=== PATIENT | male | born 1960 ===

== ENCOUNTER 2020-01-28 13:03 | Observation (INO) | payer OTHER ==
[~2020-01-28] VITALS: Ht 160 cm; Wt 71.9 kg
[2020-01-28 13:23] LABS: BASOPHILS ABSOLUTE AUTO 0.02 K/mm3 (0.00-0.23); BASOPHILS PERCENT AUTO 1 % (0-2); EOSINOPHILS ABSOLUTE AUTO 0.13 K/mm3 (0.00-0.68); EOSINOPHILS PERCENT AUTO 3 % (0-6); Hematocrit 43.6 % (37.0-53.0); IMMATURE GRAN PERCENT AUTO 0 % (0-1); LYMPHOCYTES ABSOLUTE AUTO 1.36 K/mm3 (0.84-5.20); LYMPHOCYTES PERCENT AUTO 32 % (21-46); MONOCYTES ABSOLUTE AUTO 0.39 K/mm3 (0.16-1.47); MONOCYTES PERCENT AUTO 9 % (4-13); Mean Corpuscular HGB 32.1 pg (26.0-34.0); Mean Corpuscular HGB Conc 34.4 g/dL (31.5-36.5); Mean Corpuscular Volume 93 fL (80-100); Mean Platelet Volume 9.2 fL (9.1-12.4); NEUTROPHILS ABSOLUTE AUTO 2.36 K/mm3 (1.96-9.15); NEUTROPHILS PERCENT AUTO 55 % (41-73); Platelet Count 223 K/mm3 (150-400); RDW Coefficient Variation 11.7 % (11.7-14.2); RDW Standard Deviation 39.8 fL (35.1-46.3); Red Blood Cell Count 4.67 M/mm3 (4.30-5.90); White Blood Cell Count 4.26 K/mm3 (4.00-11.30)
[2020-01-28] MEDS ORDERED: NITROGLYCERIN0.4 M1 SL (13:28)
[2020-01-28 13:54] LABS: Alanine Aminotransfer (ALT/SGP 26 U/L (12-78); Albumin, Blood 3.6 g/dL (3.4-5.0); Albumin/Globulin Ratio 0.7 (0.8-1.8); Alk Phos 90 U/L (50-136); Anion Gap 7 mmol/L (6-16); Aspartate Aminotrans (AST/SGOT 21 U/L (12-37); Bilirubin, Total 1.1 mg/dL (0.1-1.0); Blood Urea Nitrogen 17 mg/dL (8-24); Bun/Creatinine Ratio 21.3 (12.0-20.0); CO2, Blood 23 mmol/L (21-32); Calcium, Blood 8.6 mg/dL (8.5-10.1); Chloride, Blood 108 mmol/L (98-108); Globulin, Blood 4.9 g/dL (2.2-4.0); Glomerular Filtration Rate >60 (60-); Glucose, Blood 111 mg/dL (70-99); Potassium, Blood 3.6 mmol/L (3.5-5.5); Sodium, Blood 138 mmol/L (136-145); Total Protein, Blood 8.5 g/dL (6.4-8.2); Troponin I <0.015 ng/mL (0.000-0.040)
[2020-01-28] MEDS ORDERED: CAL-GEST PO (16:11)
--- NOTE | 2020-01-28 16:58 | NUR ---
Echocardiogram completed.
--- NOTE | 2020-01-28 17:49 | NUR ---
PATIENT UNABLE TO COMPREHEND QUESTIONING. CORK INSULATION INSTALLER PHONE WAS USED.
--- NOTE | 2020-01-28 18:04 | NUR ---
PATIENT ARRIVED TO ED VIA AMBULANCE AFTER EXPERIENCING CP RADIATING INTO NECK WHILE WORKING OUTSIDE TODAY. TRANSFERRED TO PCU AT APPROX 1700. NURSE AND SEARCH ENGINE MARKETING SPECIALIST WORKING THROUGH ADMISSION TOGETHER. PATIENT SPEAKS VERY LITTLE [place]. INTERPRETOR PHONE WAS USED FOR ADMISSION QUESTIONS. PATIENT CURRENTLY REPORTING CP 09/11. DENIES SOB, COUGH, OR FEVERS. REPORTS PMH OF HTN, HLD, AND OCCASIONAL CP. PER ED, PT REPORTED A "SMALL HEART ATTACK APPROX 2 YRS AGO" BUT PT DENIES ANY HX OF HEART ATTACKS NOW. PT DENIES ALLERGIES. DOES NOT TAKE ANY REGULAR MEDICATIONS OTHER THAN NITRO FOR OCCASIONAL CP. DESPITE USING INTERPRETOR PHONE, PT HAVING DIFFICULTY UNDERSTANDING SOME QUESTIONS ABOUT MEDICAL HISTORY. CARDIAC DIET ORDERED. NPO AFTER MIDNIGHT FOR STRESS TEST IN THE AM. PT REQUESTED TO GO HOME, BUT AGREES TO STAY UNTIL TEST TOMORROW. THIS STUDENT NURSE, PRECEPTOR CHARLES, AND PT WERE ALL ABLE TO PARTICIPATE IN INTERPRETOR PHONE CALL TOGETHER. PATIENT REPORTED TO PRECEPTOR THAT HE CONSUMES 6 BEERS PER DAY.
[2020-01-28] MEDS ORDERED: ALBU90OI INH (19:22)
[2020-01-28] MEDS ORDERED: ACET500 PO (19:30)
--- NOTE | 2020-01-28 22:29 | NUR ---
ASSUMED CARE OF PATIENT AT APPROXIMATELY 1900 FROM CHARLES Reyes RN. PATIENT ALERT AND ORIENTED; PATIENT SPEAKS LITTLE [place]; PATROL SUPERVISOR PHONE BEDSIDE AND USED DURING ASSESSMENT. PATIENT REQUESTED ALBUTEROL INHALER AND SOMETHING FOR DRY NOSE; ORDERS RECIEVED FROM KATHLEEN FERRO. PATIENT REPORTS CP <1; NITRO PATCH IN PLACE; PATIENT ALSO REPORTED A HEADACHE; REQUESTED TYLENOL; REPORTS HE HAS HEADACHES OFTEN. PATIENT DENIES NUMBNESS, TINGLING, DIZZINESS OR NAUSEA. PATIENT EDUCATED ON BEING NPO AFTER MIDNIGHT FOR STRESS TEST. NSR ON TELE; TROPONIN X2 NEGATIVE; STRESS TEST IN AM; OXYGEN SATURATION ABOVE 90% ON ROOM AIR. PIV S/L. PATIENT CURRENTLY RESTING IN BED; CALL LIGHT IN REACH; BED IN LOWEST POSISTION; BED ALARM ON. WILL CONTINUE TO MONITOR AND ASSESS UNTIL END OF SHIFT.
--- NOTE | 2020-01-28 23:10 | NUR ---
PATIENT DENIES CP/PRESSURE. 1900 EKG DONE AT 2300. VSS. NO OTHER ACUTE CHANGES TO REPORT.
[2020-01-29 05:03] LABS: BASOPHILS ABSOLUTE AUTO 0.02 K/mm3 (0.00-0.23); BASOPHILS PERCENT AUTO 0 % (0-2); EOSINOPHILS ABSOLUTE AUTO 0.15 K/mm3 (0.00-0.68); EOSINOPHILS PERCENT AUTO 2 % (0-6); Hematocrit 42.8 % (37.0-53.0); Hemoglobin 14.3 g/dL (13.5-17.5); IMMATURE GRAN ABSOLUTE AUTO 0.01 K/mm3 (0.00-0.10); IMMATURE GRAN PERCENT AUTO 0 % (0-1); LYMPHOCYTES ABSOLUTE AUTO 1.35 K/mm3 (0.84-5.20); LYMPHOCYTES PERCENT AUTO 20 % (21-46); MONOCYTES ABSOLUTE AUTO 0.59 K/mm3 (0.16-1.47); MONOCYTES PERCENT AUTO 9 % (4-13); Mean Corpuscular HGB 31.4 pg (26.0-34.0); Mean Corpuscular HGB Conc 33.4 g/dL (31.5-36.5); Mean Corpuscular Volume 94 fL (80-100); Mean Platelet Volume 9.2 fL (9.1-12.4); NEUTROPHILS ABSOLUTE AUTO 4.64 K/mm3 (1.96-9.15); NEUTROPHILS PERCENT AUTO 69 % (41-73); Platelet Count 230 K/mm3 (150-400); RDW Coefficient Variation 11.7 % (11.7-14.2); RDW Standard Deviation 40.2 fL (35.1-46.3); Red Blood Cell Count 4.55 M/mm3 (4.30-5.90); White Blood Cell Count 6.76 K/mm3 (4.00-11.30)
[2020-01-29 05:39] LABS: Anion Gap 8 mmol/L (6-16); Blood Urea Nitrogen 15 mg/dL (8-24); Bun/Creatinine Ratio 18.8 (12.0-20.0); CO2, Blood 24 mmol/L (21-32); Calcium, Blood 8.4 mg/dL (8.5-10.1); Chloride, Blood 109 mmol/L (98-108); Cholesterol 182 mg/dL (50-200); Glomerular Filtration Rate >60 (60-); Glucose, Blood 97 mg/dL (70-99); Potassium, Blood 3.7 mmol/L (3.5-5.5); Sodium, Blood 141 mmol/L (136-145); Triglycerides 98 mg/dL (30-160); Very Low Density Lipoprot Chol 19 mg/dL (6-32)
[2020-01-29 05:42] LABS: CHOL/HDL RATIO 5.2; HDL Cholesterol 35 mg/dL (>39); LDL/HDL RATIO 3.6; Low Density Lipoprotein Chol 127 mg/dL (0-110); Troponin I <0.015 ng/mL (0.000-0.040)
--- NOTE | 2020-01-29 06:01 | NUR ---
PATIENT SLEPT ABOUT NINE HOURS LAST NIGHT. VSS. ALL TROPONIN NEGATIVE. NO OTHER ACUTE CHANGES TO REPORT.
[2020-01-29] MEDS ORDERED: ATOR20 (10:29)
[2020-01-29] MEDS ORDERED: OMEP20ER PO (10:30)
--- NOTE | 2020-01-29 10:33 | NUR ---
WAS UNABLE TO PLACE REFERRAL TO PCP [facility] DOES NOT SUPPORT PROVIDERS FROM OUT OF AREA, PT USES [facility]. INTEPRETOR TO ROOM TO DISCUSS PT'S STRESS TEST WITH THIS RN AND MD, PT EDUCATED THOROUGHLY WITH INTEPRETOR. PT EXPRESSED UNDERSTANDING OF THE RISKS OD LEAVING WITHOUT STRESS TEST BEING PERFORMED STS THAT HE WISHES TO HAVE IT PERFORMED OUTPT. PT EDUCATED ABOUT D/C MEDICATIONS AND DENIES FURTHER NEEDS. IV REMOVED AND PRESSURE DRESSED, PT HAS CALLED RIDE FROM [place], RX CALLED INTO [facility] IN [place]. PT STS THAT HE UNDERSTANDS D/C TEACHING AND DENIES FURTHER NEEDS
--- NOTE | 2020-01-29 11:15 | NUR ---
PBC NOT IN USE WHEN ASSUMED CARE OF PT.
== END 2020-01-29 12:05 | disposition home or self-care (01) ==
LOC: ER 13:03 → PCU 13:04
PROVIDERS: Emergency Medicine; Nurse Practitioner Acute Care; ADMIT Internal Medicine
DX: I20.9 Angina pectoris, unspecified (principal); E78.5 Hyperlipidemia, unspecified; J45.909 Unspecified asthma, uncomplicated; K21.9 Gastro-esophageal reflux disease without esophagitis; Z87.11 Personal history of peptic ulcer disease; Z79.899 Other long term (current) drug therapy
CPT/HCPCS: 36415; 71045; 80048; 80053; 80061; 83880; 84484; 85025; 93005; 93010; 93306; 99285-25; A9270; A9270-GY; G0378